=== PATIENT | female | born 1990 | race Caucasian/White ===

== ENCOUNTER → 2017-07-21 | Outpatient (CLI) | payer OTHER | END | disposition home or self-care (01) | LOC: LAB.O 09:26 | PROVIDERS: ATTEND Psychiatry & Neurology Psychiatry | DX: Z51.81 Encounter for therapeutic drug level monitoring (principal) ==

== ENCOUNTER → 2017-12-20 | Outpatient (CLI) | payer OTHER | LOC: LAB.NP 08:44 | PROVIDERS: ATTEND Nurse Practitioner Psychiatric/Mental Health | DX: F31.12 Bipolar disorder, current episode manic without psychotic features, moderate (principal) ==